=== PATIENT | female | born 1955 | race Caucasian/White ===

== ENCOUNTER 2018-09-30 08:01 | Day surgery (SDC) | payer BC ==
[2018-09-30] MEDS ORDERED: FENTAnyl 50 MCG/ML VIAL (10:44)
[2018-09-30] MEDS ORDERED: MIDAZOLAM 1 MG/ML 2 ML INJ ×3 (10:44)
== END 2018-09-30 12:11 | disposition home or self-care (01) ==
LOC: GIL 08:01
DX: Z12.11 Encounter for screening for malignant neoplasm of colon (principal); K62.1 Rectal polyp; D12.5 Benign neoplasm of sigmoid colon; K64.8 Other hemorrhoids; D12.2 Benign neoplasm of ascending colon
CPT/HCPCS: 45385; 88305